=== PATIENT | female | born 1985 | race Caucasian/White ===

== ENCOUNTER 2019-06-04 16:51 | Emergency (ER) | payer MEDICAID ==
[~2019-06-04] VITALS: Ht 160 cm; Wt 81.5 kg
[~2019-06-04 16:51] MED LIST: CEPH-443 PO; CYAN1TAB14 PO; HYDR-4011 PO; PREN1TAB62 PO; SULF1TAB31 PO
[2019-06-04 16:57] VITALS: BP 134/84; PULSE 76; RESP 18; Ht 160 cm; Wt 81.5 kg
[2019-06-04] MEDS ORDERED: HYDROCODONE/APAP (5/325) TAB PO ONE (18:00)
== END 2019-06-04 18:10 | disposition home or self-care (01) ==
LOC: FTE 16:51
DX: L76.81 Other intraoperative complications of skin and subcutaneous tissue (principal)
CPT/HCPCS: Z7502; Z7610; 99283